=== PATIENT | female | born 1985 | race Caucasian/White ===

== ENCOUNTER 2020-01-29 | Emergency (ER) | payer BC, OTHER | END 2020-01-29 13:36 | disposition home or self-care (01) | CPT/HCPCS: 90471; 90715; 99282 ==

== ENCOUNTER → 2020-10-06 | Outpatient (CLI) | payer BC ==
--- NOTE | 2020-10-06 22:49 | CT ---
EXAMINATION TYPE: CT soft tissue neck w con DATE OF EXAM: 10/06/2020 COMPARISON: None HISTORY: Mass right side neck CT DLP: 339.40 mGycm CONTRAST: Patient injected with 50 mL of Isovue 300. TECHNIQUE: Axial images at 3 mm thick sections. Reconstructed images in the coronal plane and sagitt al plane are reviewed. Patient was marked with a BB for mass. However, the BB fell off prior to the s barrett and is not within the [id number] during the time of this scan. FINDINGS: Limited CT sections are obtained the lung apices. The lung apices appear clear. CT neck: There is fullness through the posterior nasal passage. Adenopathy could be considered. Direc t visualization could be performed. Parts Back Counter Man spaces are normal. Paranasal sinuses and mastoid air cells are clear. Parotid glands appear normal and symmetrical. Submandibular glands, are normal. Parapharyngeal spac es are normal. No suspicious adenopathy is evident. Small jugulodigastric and carotid sheath region lymph nodes. Enlarged lymphadenopathy is not evident . A few posterior triangle small lymph nodes are present. Couple of small submental lymph nodes are p resent. Lymph nodes are slightly more numerous on the right compared to the left. The hypopharynx appears within normal limits. Vocal cord level appear symmetrical. There is a hypodensity within the posterior right lobe thyroid. This could be further evaluated with ultrasound. This measures approximately 0.9 cm AP dimension Osseous structures are normal. IMPRESSIONS: 1. Scattered small lymph nodes. No enlarged suspicious adenopathy is evident. 2. No discrete abnormality to account for patient's mass.
--- NOTE | 2020-10-08 11:04 | CT ---
EXAMINATION TYPE: CT ChestAbdPelvis wo/w con DATE OF EXAM: 10/06/2020 INDICATION: Localized swelling, mass and lump, hx. non hodgkins lymphoma. COMPARISON: None CT DLP: 1205.00 mGycm CONTRAST: Performed with Oral Contrast and without and with IV Contrast, patient injected with 50 mL of Isovue 300. TECHNIQUE: Axial images at 5 mm thick sections. Reconstructed images in the coronal plane. Delayed images through the kidneys. Study is performed without and with intravenous contrast. FINDINGS: CT CHEST: Portion of the thyroid visualized is normal. No suspicious lung nodules or focal infiltrates are present. No enlarged mediastinal or hilar adenopathy is evident. The ascending aorta diameter at the level of the main pulmonary artery is 2.4 cm. The main pulmonary artery diameter at the bifurcation is 2.[address] ABDOMEN: Liver: Normal Spleen: Normal Pancreas: Normal Adrenal glands: The adrenal glands are normal. Gallbladder: Normal Kidneys: No masses are evident. No hydronephrosis is present. No cysts are present. Delayed images were obtained through the kidneys, which remain unremarkable. Aorta: Normal Inferior vena cava: Normal. CT PELVIS: Loops of bowel within the abdomen and pelvis are normal. There are loops of bowel which are incom pletely distended or lack oral contrast limiting their evaluation. Appendix: Not visualized. No suspicious dilated tubular structure inflammatory changes are evident. Urinary bladder: Normal. Genitourinary structures: Uterus is normal. Adnexal regions are clear Osseous structures: No suspicious lytic or sclerotic lesions. Lymph nodes: There are small axillary lymph nodes within the left axilla. The largest measures 0.7 cm on the left and 0.9 cm on the right. No suspicious mediastinal or hilar adenopathy is evident. IMPRESSIONS: 1. No suspicious enlarged adenopathy suggest recurrent lymphoma.
== END | disposition home or self-care (01) ==
LOC: RADCTMAIN 08:32
PROVIDERS: ATTEND Internal Medicine
DX: R22.0 Localized swelling, mass and lump, head (principal)
CPT/HCPCS: 70491; 71270; 74178; Q9967

== ENCOUNTER → 2020-10-06 | Outpatient (CLI) | payer BC | END | disposition home or self-care (01) | LOC: RADCTMAIN 09:00 | PROVIDERS: ATTEND Internal Medicine Endocrinology, Diabetes & Metabolism | DX: Z53.9 Procedure and treatment not carried out, unspecified reason (principal) ==

== ENCOUNTER → 2020-10-17 | Outpatient (CLI) | payer BC ==
--- NOTE | 2020-10-17 16:37 | US ---
EXAMINATION TYPE: US thyroid st tissue head/neck DATE OF EXAM: 10/17/2020 COMPARISON: Correlation CT 10/06/2020 CLINICAL HISTORY: 35-year-old female E04.1 Thyroid nodule. Nodule visualized on CT TECHNIQUE: Multiple sonographic images of the thyroid gland are obtained. FINDINGS: GLAND SIZE: Right Lobe: 5.3 x 1.1 x 1.0 cm Overall Parenchyma: homogenous Left Lobe: 4.8 x 0.9 x 0.9 cm Overall Parenchyma: homogeneous Isthmus Thickness: 0.2 cm NODULES RIGHT: # of nodules measured on right: 1 1. 1.1 X 0.9 x 0.9 cm heterogeneous, solid or almost completely solid, isoechoic nodule, which is w ider than tall, with smooth margins, without echogenic foci. Prior size: no previous LEFT: # of nodules measured on left: 1 1. 0.6 X 0.4 x 0.5 cm solid or almost completely solid (2 points), hypoechoic nodule (2 points), wh ich is wider than tall, with smooth margins, without echogenic foci. Prior size: no previous ISTHMUS: # of nodules measured in the isthmus: 0 Bilateral neck scanned, no evidence of lymphadenopathy. IMPRESSION: 1. Borderline to mild thyromegaly. 2. Solid nodule on each side, measuring 1.1 cm on the right (TR 4) and 6 mm on the left. The dominant nodule should be followed. FNA if it reaches 1.5 cm. 2017 ACR TI-RADS LEVEL: 4, moderately suspicious (follow if greater than 1 cm and FNA if greater than equal to 1.5 cm) *Highest TI-RADS level nodule reported
== END | disposition home or self-care (01) ==
LOC: RADUSWWP 15:23
PROVIDERS: ATTEND Internal Medicine
DX: E04.2 Nontoxic multinodular goiter (principal); Z91.013 Allergy to seafood
CPT/HCPCS: 76536

== ENCOUNTER → 2022-05-16 | Outpatient (CLI) | payer BC ==
--- NOTE | 2022-05-16 13:15 | US ---
EXAMINATION TYPE: US thyroid st tissue head/neck DATE OF EXAM: 05/16/2022 COMPARISON: NONE CLINICAL HISTORY: R59.0 ENLARGED LYMPH NODES. Palpable lymph node on right side of neck just under ma yocasta, patient is 10 weeks with h/o Non Hodgkin's Lymphoma years ago 2.5 x 2.1 x 1.1cm lymph node seen at palpable. Patient states her physician is ordering short term fo llow up in June. IMPRESSION: 1. Enlarged lymphadenopathy within the right neck at the level of the palpable abnormality is just po sterior to the submandibular gland.
== END | disposition home or self-care (01) ==
LOC: RADUSWWP 10:17
PROVIDERS: ATTEND Internal Medicine Hematology & Oncology
DX: R59.0 Localized enlarged lymph nodes (principal)
CPT/HCPCS: 76536

== ENCOUNTER 2022-06-20 08:20 | Emergency (ER) | payer BC ==
[2022-06-20 08:46] VITALS: RESP 18
[2022-06-20] MEDS ORDERED: ACETAMINOPHEN TAB 325 MG TAB PO STA (10:15)
[2022-06-20] MEDS ORDERED: SODIUM CHLORIDE 0.9% 2,000 ML IV STA (10:15)
[2022-06-20 10:41] LABS: Basophils # (A) 0.1 k/uL (0-0.2); Basophils % (A) 1 %; Eosinophils # (A) 0.1 k/uL (0-0.7); Eosinophils % (A) 1 %; HCT 35.4 % (34.0-46.0); HGB 11.6 gm/dL (11.4-16.0); Lymphocytes # (A) 0.7 k/uL (1.0-4.8); Lymphocytes % (A) 13 %; MCH 29.3 pg (25.0-35.0); MCHC 32.9 g/dL (31.0-37.0); Mean Platelet Volume 6.9; Monocytes # (A) 0.5 k/uL (0-1.0); Monocytes % (A) 9 %; Neutrophils # (A) 3.8 k/uL (1.3-7.7); Neutrophils % (A) 74 %; Platelet Count 234 k/uL (150-450); RBC 3.98 m/uL (3.80-5.40); WBC 5.1 k/uL (3.8-10.6)
[2022-06-20 10:45] LABS: Appearance,Urine Clear (Clear); Bacteria,Urine Occasional /hpf; Bilirubin,Urine Negative (Negative); Blood,Urine Negative (Negative); Color,Urine Yellow; Glucose,Urine (UA) 3+ (Negative); Leukocyte Esterase,Urine Moderate (Negative); Mucus,Urine Rare /hpf; Nitrite,Urine Negative (Negative); Protein,Urine Trace (Negative); Specific Gravity,Urine 1.021 (1.001-1.035); Squamous Epithelial Cell,Urine 2 /hpf (0-4); Urobilinogen,Urine <2.0 mg/dL (<2.0); WBC,Urine 3 /hpf (0-5)
--- NOTE | 2022-06-20 10:50 | ED ---
Abdominal Pain HPI - General Chief Complaint: Abdominal Pain Stated Complaint: ABM Pain,Fever Time Seen by Provider: 06/20/22 08:22 Source: patient, RN notes reviewed Mode of arrival: ambulatory Limitations: no limitations - History of Present Illness Initial Comments: 37-year-old female presents emergency Department chief complaint of fever, abdominal discomfort. Patient states she has not felt well over the last 2 days. She had decreased oral intakeand nausea. Patient is [address] Garcia. Patient states that she has right-sided abdominal pains had a prior appendectomy. Patient states temp was 101. She did Tylenol approximately 6 hours ago. Patient denies any unilateral flank pain with states she is bilateral back pain, no vaginal bleeding or vaginal discharge patient has been sick contacts of cough and cold-like symptoms. - Related Data Home Medications Medication Instructions Recorded Confirmed Pnv,Calcium 72/Iron/Folic Acid 1 each PO HS 08/22/15 08/22/15 [ Plus Tablet] Allergies Allergy/AdvReac Type Severity Reaction Status Date / Time codeine AdvReac Nausea & Verified 06/20/22 08:46 Vomiting Review of Systems ROS Statement: Those systems with pertinent positive or pertinent negative responses have been documented in the HPI. ROS Other: All systems not noted in ROS Statement are negative. Past Medical History Additional Past Medical History / Comment(s): Hodgkin's Lymphoma 2008 History of Any Multi-Drug Resistant Organisms: None Reported Past Surgical History: Appendectomy Past Psychological History: No Psychological Hx Reported Smoking Status: Former smoker Past Alcohol Use History: Occasional Past Drug Use History: None Reported General Exam Limitations: no limitations General appearance: alert, in no apparent distress Head exam: Present: atraumatic, normocephalic, normal inspection Eye exam: Present: normal appearance, PERRL, EOMI. Absent: scleral icterus, conjunctival injection, periorbital swelling ENT exam: Present: normal exam, normal oropharynx, mucous membranes moist Neck exam: Present: normal inspection, full ROM. Absent: tenderness, meningismus, lymphadenopathy Respiratory exam: Present: normal lung sounds bilaterally. Absent: respiratory distress, wheezes, rales, rhonchi, stridor Cardiovascular Exam: Present: normal rhythm, tachycardia, normal heart sounds. Absent: systolic murmur, diastolic murmur, rubs, gallop, clicks GI/Abdominal exam: Present: soft, tenderness (Mild diffuse right-sided minimal left), normal bowel sounds. Absent: distended, guarding, rebound, rigid Back exam: Absent: CVA tenderness (R), CVA tenderness (L) Neurological exam: Present: alert Skin exam: Present: warm, dry, intact, normal color. Absent: rash Course Vital Signs 06/20/22 08:43 Temperature 98.9 F Pulse Rate 111 H Respiratory 18 Rate Blood Pressure 108/71 O2 Sat by Pulse 99 Oximetry Medical Decision Making - Medical Decision Making 37-year-old female presented for headache abdominal pain fever. Patient is covid 19 positive. Patient was well-hydrated feels greatly improved. She did have mild dehydration. Patient's pupils glucose which will be further evaluated upon next [employer] visit she does not have any significant hyperglycemia. - Lab Data Result diagrams: 06/20/22 10:20 06/20/22 10:20 Lab Results 06/20/22 06/20/22 06/20/22 Range/Units 10:20 10:20 10:20 WBC 5.1 (3.8-10.6) k/uL RBC 3.98 (3.80-5.40) m/uL Hgb 11.6 (11.4-16.0) gm/dL Hct 35.4 (34.0-46.0) % MCV 89.0 (80.0-100.0) fL MCH 29.3 (25.0-35.0) pg MCHC 32.9 (31.0-37.0) g/dL RDW 13.0 (11.5-15.5) % Plt Count 234 (150-450) k/uL MPV 6.9 Neutrophils % 74 % Lymphocytes % 13 % Monocytes % 9 % Eosinophils % 1 % Basophils % 1 % Neutrophils # 3.8 (1.3-7.7) k/uL Lymphocytes # 0.7 L (1.0-4.8) k/uL Monocytes # 0.5 (0-1.0) k/uL Eosinophils # 0.1 (0-0.7) k/uL Basophils # 0.1 (0-0.2) k/uL Sodium 135 L (137-145) mmol/L Potassium 3.8 (3.5-5.1) mmol/L Chloride 106 (98-107) mmol/L Carbon Dioxide 21 L (22-30) mmol/L Anion Gap 8 mmol/L BUN 5 L (7-17) mg/dL Creatinine 0.48 L (0.52-1.04) mg/dL Est GFR (CKD-EPI)AfAm >90 (>60 ml/min/1.73 sqM) Est GFR (CKD-EPI)NonAf >90 (>60 ml/min/1.73 sqM) Glucose 95 (74-99) mg/dL Plasma Lactic Acid Edi 1.1 (0.7-2.0) mmol/L Calcium 9.2 (8.4-10.2) mg/dL Total Bilirubin 0.4 (0.2-1.3) mg/dL AST 28 (14-36) U/L ALT 14 (4-34) U/L Alkaline Phosphatase 51 (38-126) U/L Total Protein 7.0 (6.3-8.2) g/dL Albumin 4.0 (3.5-5.0) g/dL Amylase 84 (30-110) U/L Lipase 63 (23-300) U/L Urine Color Urine Appearance (Clear) Urine pH (5.0-8.0) Ur Specific Page (1.001-1.035) Urine Protein (Negative) Urine Glucose (UA) (Negative) Urine Ketones (Negative) Urine Blood (Negative) Urine Nitrite (Negative) Urine Bilirubin (Negative) Urine Urobilinogen (<2.0) mg/dL Ur Leukocyte Esterase (Negative) Urine WBC (0-5) /hpf Ur Squamous Epith Cells (0-4) /hpf Urine Bacteria (None) /hpf Urine Mucus (None) /hpf Coronavirus (PCR) (Not Detectd) 06/20/22 06/20/22 Range/Units 10:20 10:20 WBC (3.8-10.6) k/uL RBC (3.80-5.40) m/uL Hgb (11.4-16.0) gm/dL Hct (34.0-46.0) % MCV (80.0-100.0) fL MCH (25.0-35.0) pg MCHC (31.0-37.0) g/dL RDW (11.5-15.5) % Plt Count (150-450) k/uL MPV Neutrophils % % Lymphocytes % % Monocytes % % Eosinophils % % Basophils % % Neutrophils # (1.3-7.7) k/uL Lymphocytes # (1.0-4.8) k/uL Monocytes # (0-1.0) k/uL Eosinophils # (0-0.7) k/uL Basophils # (0-0.2) k/uL Sodium (137-145) mmol/L Potassium (3.5-5.1) mmol/L Chloride (98-107) mmol/L Carbon Dioxide (22-30) mmol/L Anion Gap mmol/L BUN (7-17) mg/dL Creatinine (0.52-1.04) mg/dL Est GFR (CKD-EPI)AfAm (>60 ml/min/1.73 sqM) Est GFR (CKD-EPI)NonAf (>60 ml/min/1.73 sqM) Glucose (74-99) mg/dL Plasma Lactic Acid Edi (0.7-2.0) mmol/L Calcium (8.4-10.2) mg/dL Total Bilirubin (0.2-1.3) mg/dL AST (14-36) U/L ALT (4-34) U/L Alkaline Phosphatase (38-126) U/L Total Protein (6.3-8.2) g/dL Albumin (3.5-5.0) g/dL Amylase (30-110) U/L Lipase (23-300) U/L Urine Color Yellow Urine Appearance Clear (Clear) Urine pH 6.0 (5.0-8.0) Ur Specific Page 1.021 (1.001-1.035) Urine Protein Trace H (Negative) Urine Glucose (UA) 3+ H (Negative) Urine Ketones 2+ H (Negative) Urine Blood Negative (Negative) Urine Nitrite Negative (Negative) Urine Bilirubin Negative (Negative) Urine Urobilinogen <2.0 (<2.0) mg/dL Ur Leukocyte Esterase Moderate H (Negative) Urine WBC 3 (0-5) /hpf Ur Squamous Epith Cells 2 (0-4) /hpf Urine Bacteria Occasional H (None) /hpf Urine Mucus Rare H (None) /hpf Coronavirus (PCR) Detected A (Not Detectd) Disposition Clinical Impression: COVID-19, Dehydration Disposition: HOME SELF-CARE Condition: Stable Instructions (If sedation given, give patient instructions): COVID-19 (Coronavirus Disease 2019) (ED) Additional Instructions: Please return to the Emergency Department if symptoms worsen or any other concerns. Is patient prescribed a controlled substance at d/c from ED?: No Referrals: Timothy Snider MD [Primary Care Provider] - 1-2 days Time of Disposition: 13:03
[2022-06-20 10:52] LABS: ALT 14 U/L (4-34); AST 28 U/L (14-36); African American GFR (CKD) >90 (>60 ml/min/1.73 sqM); Alkaline Phosphatase 51 U/L (38-126); Amylase 84 U/L (30-110); Anion Gap 8 mmol/L; Blood Urea Nitrogen 5 mg/dL (7-17); Calcium 9.2 mg/dL (8.4-10.2); Carbon Dioxide 21 mmol/L (22-30); Chloride 106 mmol/L (98-107); Glucose 95 mg/dL (74-99); Lipase 63 U/L (23-300); Non-African American GFR(CKD) >90 (>60 ml/min/1.73 sqM); Potassium 3.8 mmol/L (3.5-5.1); Sodium 135 mmol/L (137-145); Total Bilirubin 0.4 mg/dL (0.2-1.3)
[2022-06-20 11:15] LABS: Ketones,Urine 2+ (Negative)
--- NOTE | 2022-06-20 12:17 | US ---
EXAMINATION TYPE: US gallbladder DATE OF EXAM: 06/20/2022 COMPARISON: None CLINICAL HISTORY: 37-year-old female fever, pain. Abdomen pain TECHNIQUE: Multiple sonographic images of the right upper quadrant are obtained. FINDINGS: EXAM MEASUREMENTS: Liver Length: 14.9 cm Gallbladder Wall: 0.2 cm CBD: 0.3 cm Right Kidney: 12.1 x 4.6 x 5.1 cm Pancreas: wnl Liver: wnl Gallbladder: wnl. No gallstones or abnormal distention. Evidence for sonographic Barriga's sign: no CBD: wnl Right Kidney: wnl IMPRESSION: Unremarkable sonographic examination of the right upper quadrant.
--- NOTE | 2022-06-20 12:54 | US ---
EXAMINATION TYPE: US OB limited DATE OF EXAM: 06/20/2022 COMPARISON: NONE CLINICAL HISTORY: heart tone. Evaluate heart tones only. Hx 4 miscarriages, D and C. G7 P 2. EXAM PERFORMED: Transabdominal (TA) GESTATIONAL AGE / DATING Physician Established: (15 weeks/0 days) EDC: 03/07/2022 No growth performed on today?s study per ordering physician SURVEY PRESENTATION: Vertex HEART RATE: 147 bpm 1st measurement, 140 bpm 2nd measurement RHYTHM: Normal limited scan IMPRESSION: heart rate above
[2022-06-20 13:12] VITALS: BP 95/56; PULSE 82; TEMP 97.6
== END 2022-06-20 13:11 | disposition home or self-care (01) ==
LOC: EC 08:20
DX: O98.511 Other viral diseases complicating pregnancy, first trimester (principal); U07.1 COVID-19; Z87.891 Personal history of nicotine dependence; Z88.6 Allergy status to analgesic agent; Z3A.15 15 weeks gestation of pregnancy
CPT/HCPCS: 36415; 76705; 76815; 80053; 81001; 82150; 83605; 83690; 85025; 87635; 96360; 96361; 99284

== ENCOUNTER → 2022-07-04 | Outpatient (CLI) | payer BC ==
--- NOTE | 2022-07-04 14:20 | US ---
EXAMINATION TYPE: US st tissue neck DATE OF EXAM: 07/04/2022 COMPARISON: US 04/2022 CLINICAL HISTORY: 37-year-old female R59.0 LOCALIZED ENLARGED LYMPH NODES. Follow right neck palpable lymph node. Patient has history of lymphoma. Patient is 17 weeks . TECHNIQUE: Gold Blower notes: Area of concern scanned at the right neck palpable site. FINDINGS: Gold Blower notes: Previous lymph node seen measuring 2.3 x 1.4 x 0.8 cm (1.4 cm short axis) and with cortical thickening up to 3.1 mm. This lymph node is present adjacent to submandibular gland. Previously measured 2.5 x 2.1 x 1.1 cm. IMPRESSION: Persistently enlarged with decreasing size of the right submandibular space lymph node currently 1.4 cm short axis versus 2.1 cm, previously.
== END | disposition home or self-care (01) ==
LOC: RADUSWWP 09:25
PROVIDERS: ATTEND Internal Medicine Hematology & Oncology
DX: R59.0 Localized enlarged lymph nodes (principal)
CPT/HCPCS: 76536

== ENCOUNTER → 2022-09-05 | Outpatient (CLI) | payer BC ==
--- NOTE | 2022-09-05 11:55 | US ---
EXAMINATION TYPE: US thyroid st tissue head/neck DATE OF EXAM: 09/05/2022 COMPARISON: 07/04/2022, 05/16/2022 CLINICAL HISTORY: Personal history of Hodgkin lymphoma. Right neck palpable mass follow up. Patient is 26 weeks In area of palpable concern, right superior lateral neck near submandibular gland, a 2.8 x 0.56 x 1.2 cm lymph node is visualized. *Prior measurement in June 2022 was 2.3 x 0.75 x 1.4 cm. Node appears less prominent today however technical differences may account for change in length siz e. Cortical thickness is 0.23 cm today compared to 0.31cm in June 2022. IMPRESSION: Relatively stable mildly enlarged right submandibular space lymph node when taken into account differ ences in technique. Cortical thicknesses is marginally decreased from prior examination.
== END | disposition home or self-care (01) ==
LOC: RADUSWWP 10:35
PROVIDERS: ATTEND Internal Medicine Hematology & Oncology
DX: R59.0 Localized enlarged lymph nodes (principal); Z85.72 Personal history of non-Hodgkin lymphomas
CPT/HCPCS: 76536

== ENCOUNTER → 2022-12-01 | Outpatient (CLI) | payer BC ==
[2022-12-01 19:41] VITALS: BP 122/78; PULSE 106; RESP 16; TEMP 96.9
--- NOTE | 2022-12-12 12:51 | P.MSEPDOC ---
Presenting Problems - Arrival Data Date of Arrival on Unit: 12/01/22 Time of Arrival on Unit: 17:58 Mode of Transport: Ambulatory - Complaint OB-Reason for Admission/Chief Complaint: Possible Onset of Labor Comment: Patient arrived in triage stating she had painful contractions earlier in the day that have now spaced out. Denies leaking of fluid after cervical exam in office by Dr. Garcia 11/30/2011 patient states she had smal amount of brown discharge and started cramping after exam. Abdomen soft and non tender per Tesha TANNER. Medical History - Information : 3 Para: 2 Number of Living Children: 2 - Gestational Age Gestational Age by RODRIGO (wks/days): 38 Weeks and 3 Days Review of Systems - Review of Systems Constitutional: No problems Breast: No problems ENT: No problems Cardiovascular: No problems Respiratory: No problems Gastrointestinal: No problems Genitourinary: No problems Musculoskeletal: No problems Neurological: No problems Skin: No problems Vital Signs - Temperature Temperature: 96.9 F Temperature Source: Temporal Artery Scan - Pulse Pulse Oximetery Pulse Rate: 106 Pulse Assessment Method: Pulse Oximetry - Respirations Respiratory Rate: 16 Oxygen Delivery Method: Room Air O2 Sat by Pulse Oximetry: 100 - Blood Pressure Right Arm Blood Pressure: 122/78 Blood Pressure Mean: 92 Blood Pressure Source: Automatic Cuff Medical Screen Scoring - Cervical Exam Dilation (cm): 1.5 Effacement (%): 70 Station: -2 - Uterine Contractions Resting: Soft to palpation - Assessment - Baby A Baseline FHR: 125 Heart Rate - NICHD Category: Category I (Normal) NST: Reactive Physician Notification - Physician Notified Physician Notified Date: 12/01/22 Physician Notified Time: 18:43 Physician: Jonna Garcia New Order Received: Yes - Notification Comment Comment: Tesha Osuna RN spoke with Dr. Garcia regarding patient c/o pain with contractions reviewed FHTs/toco tracing vital signs and cervical exam. Dr. Garcia ordered a cervical check in one hour if no change than send home. Maternal Triage Index - Non-Urgent/Priority 4 Non-Urgent Priority 4: Yes Criteria Met for Priority 4: Patient arrived in triage stating she had painful contractions earlier in the day that have now spaced out. Denies leaking of fluid after cervical exam in office by Dr. Garcia 11/30/2011 patient states she had smal amount of brown discharge and started cramping after exam. Abdomen soft and non tender per Tesha RN. Disposition - Disposition OB Disposition: Triage Discharge Date: 12/01/22 Discharge Time: 19:15 I agree with the RN Medical Screening Exam: Yes Case reviewed; plan agreed upon as documented in EMR&OBIX.: Yes Diagnosis: PRIMARY INADEQUATE CONTRACTIONS
== END ==
LOC: FBPOP 17:58
PROVIDERS: ATTEND Obstetrics & Gynecology
DX: O62.0 Primary inadequate contractions (principal); Z3A.38 38 weeks gestation of pregnancy; Z87.891 Personal history of nicotine dependence; Z88.5 Allergy status to narcotic agent
CPT/HCPCS: 59025; 99213

== ENCOUNTER 2022-12-07 21:34 | Outpatient (CLI) | payer BC ==
[2022-12-08 00:20] VITALS: BP 130/76; PULSE 104; RESP 16; TEMP 97.9
--- NOTE | 2022-12-09 10:44 | P.MSEPDOC ---
Presenting Problems - Arrival Data Date of Arrival on Unit: 12/07/22 Time of Arrival on Unit: 21:34 Mode of Transport: Wheelchair - Complaint OB-Reason for Admission/Chief Complaint: Possible Onset of Labor, Rule Out SROM Comment: pt presents to triage for eval of possible leaking fluid since 8am today, continued contractions for last few days crampy and sporatic. Spoke with Dr Santos on phone and was advised to come in Medical History - Information : 7 Para: 2 Term: 2 : 0 Abortions: Spontaneous or Elective: 4 Number of Living Children: 2 - Gestational Age Gestational Age by RODRIGO (wks/days): 39 Weeks and 3 Days - History Comment: advanced maternal age Review of Systems - Review of Systems Constitutional: No problems Breast: No problems ENT: No problems Cardiovascular: No problems Respiratory: No problems Gastrointestinal: No problems Genitourinary: No problems Musculoskeletal: No problems Neurological: No problems Skin: No problems Vital Signs - Temperature Temperature: 97.9 F Temperature Source: Temporal Artery Scan - Pulse Right Pulse Rate: 104 Pulse Assessment Method: Pulse Oximetry - Respirations Respiratory Rate: 16 Oxygen Delivery Method: Room Air O2 Sat by Pulse Oximetry: 99 - Blood Pressure Right Arm Blood Pressure: 130/76 Blood Pressure Mean: 94 Blood Pressure Source: Automatic Cuff Medical Screen Scoring - Cervical Exam Dilation (cm): 2.5 Effacement (%): 80 Station: -3 Membranes: Intact - Uterine Contractions Frequency From (mins): 0 Frequency To (mins): 0 Duration From (seconds): 0 Duration To (seconds): 0 Resting: Soft to palpation - Assessment - Baby A Baseline FHR: 125 Heart Rate - NICHD Category: Category I (Normal) NST: Reactive Physician Notification - Physician Notified Physician Notified Date: 12/07/22 Physician Notified Time: 22:15 Physician: Dr Santos New Order Received: Yes (Discharge order) - Notification Comment Comment: Dr Santos updated with pts reason for visit possible leaking of fluid and continued contractions. Nst Reactive, Cat 1 FHR. No contractions tracing per monitor or palpated or per pt since arrival, cervical exam unchanged from office exam Mon (2-3 cm80%) maternal vitals wnl. amnisure neg confirmed by 2nd rn. A Lauri RN. Discharge order received. Maternal Triage Index - Maternal Triage Index Presenting for scheduled procedure w/no complaint: No - Stat/Priority 1 Stat Priority 1: No - Urgent/Priority 2 Urgent Priority 2: No - Prompt/Priority 3 Prompt Priority 3: No - Non-Urgent/Priority 4 Non-Urgent Priority 4: Yes Criteria Met for Priority 4: leaking fluid / contractions Disposition - Disposition OB Disposition: Discharge to home Discharge Date: 12/07/22 Discharge Time: 22:45 I agree with the RN Medical Screening Exam: Yes Case reviewed; plan agreed upon as documented in EMR&OBIX.: Yes Diagnosis: FALSE LABOR AT OR AFTER 37 COMPLETED WEEKS OF GESTATION
== END 2022-12-07 22:45 | disposition home or self-care (01) ==
LOC: FBPOP 21:34
PROVIDERS: ATTEND Obstetrics & Gynecology
DX: O47.1 False labor at or after 37 completed weeks of gestation (principal); Z3A.39 39 weeks gestation of pregnancy; Z88.5 Allergy status to narcotic agent; Z87.891 Personal history of nicotine dependence
CPT/HCPCS: 59025; 84112; 99213

== ENCOUNTER 2022-12-10 02:37 | Inpatient (IN) | payer BC ==
[2022-12-10] MEDS ORDERED: LACTATED RINGERS 1,000 ML IV SCH ×2 (03:00→03:45)
[2022-12-10] MEDS ORDERED: LIDOCAINE 0.5% (PF) 5 MG/ML (50 ML SDV) SQ PRN (03:41)
[2022-12-10] MEDS ORDERED: TERBUTALINE 1 MG/ML VIAL SQ PRN (03:41)
[2022-12-10] MEDS ORDERED: OXYTOCIN 30 UNITS/500 ML NS 30 UNIT in SALINE 1 500ML.BAG IV SCH ×2 (03:45→15:30)
[2022-12-10 04:10] LABS: Basophils # (A) 0.1 k/uL (0-0.2); Basophils % (A) 1 %; Eosinophils # (A) 0.2 k/uL (0-0.7); Eosinophils % (A) 2 %; HCT 35.6 % (34.0-46.0); HGB 12.1 gm/dL (11.4-16.0); Lymphocytes # (A) 2.1 k/uL (1.0-4.8); Lymphocytes % (A) 21 %; MCH 28.8 pg (25.0-35.0); MCV 84.6 fL (80.0-100.0); Mean Platelet Volume 8.2; Monocytes # (A) 0.4 k/uL (0-1.0); Monocytes % (A) 4 %; Neutrophils # (A) 7.1 k/uL (1.3-7.7); Neutrophils % (A) 72 %; Platelet Count 243 k/uL (150-450); RBC 4.21 m/uL (3.80-5.40); RDW 14.4 % (11.5-15.5)
[2022-12-10] MEDS: LACTATED RINGERS 1,000 ML IV SCH ×3 (04:37→20:27)
[2022-12-10] MEDS ORDERED: diphenhydrAMINE 25 MG CAP PO PRN (15:17)
[2022-12-10] MEDS ORDERED: diphenhydrAMINE 50 MG CAP PO PRN (15:17)
[2022-12-10] MEDS ORDERED: diphenhydrAMINE 50 MG/ML 1 ML VIAL IVP PRN ×2 (15:17)
[2022-12-10] MEDS ORDERED: ZOLPIDEM 5 MG TAB PO PRN (15:17)
[2022-12-10] MEDS ORDERED: ACETAMINOPHEN TAB 325 MG TAB PO PRN (15:17)
[2022-12-10] MEDS ORDERED: LANOLIN CREAM 5 GM TUBE TOPICAL PRN (15:17)
[2022-12-10] MEDS ORDERED: HYDROCORTISONE 2.5% RECTAL CREAM 30 GM TUBE RECTAL PRN (15:17)
[2022-12-10] MEDS ORDERED: BENZOCAINE/MENTHOL SPRAY 1 GM/SPRAY AEROSOL TOPICAL PRN (15:17)
[2022-12-10] MEDS ORDERED: SIMETHICONE 80 MG CHEWABLE PO PRN (15:17)
[2022-12-10] MEDS ORDERED: METHYLERGONOVINE 0.2 MG/ML 1 ML AMP IM ONE (15:28)
[2022-12-10] MEDS: IBUPROFEN 600 MG TAB PO PRN (15:50)
[2022-12-10] MEDS: SENNOSIDES-DOCUSATE SODIUM 1 EACH TAB PO SCH (20:26)
[2022-12-10 20:28] VITALS: RESP 18
[2022-12-11] MEDS: IBUPROFEN 600 MG TAB PO PRN (04:32)
--- NOTE | 2022-12-11 07:39 | P.HPOB ---
History of Present Illness H&P Date: 12/10/22 Chief Complaint: Spontaneous rupture of membranes 37-year-old presents at 39 weeks and 5 days with spontaneous rupture membranes at 1 AM. When she presented to her cervix was dilated 4-5 cm, 70% effaced, -2 station. She is darshan every 2-5 minutes. heart tones 135 with moderate variability and reactive. Review of Systems All systems: negative Constitutional: Denies chills, Denies fever Eyes: denies blurred vision, denies pain Ears, nose, mouth and throat: Denies headache, Denies sore throat Cardiovascular: Denies chest pain, Denies shortness of breath Respiratory: Denies cough Gastrointestinal: Denies abdominal pain, Denies diarrhea, Denies nausea, Denies vomiting Genitourinary: Denies dysuria, Denies hematuria Musculoskeletal: Denies myalgias Integumentary: Denies pruritus, Denies rash Neurological: Denies numbness, Denies weakness Psychiatric: Denies anxiety, Denies depression Endocrine: Denies fatigue, Denies weight change Past Medical History Additional Past Medical History / Comment(s): Hodgkin's Lymphoma 2008 History of Any Multi-Drug Resistant Organisms: None Reported Past Surgical History: Appendectomy Additional Past Surgical History / Comment(s): Bone marrow biopsy, endoscopy, Portacath insertion and removal, Biopsy of right clavicle. Past Anesthesia/Blood Transfusion Reactions: No Reported Reaction Past Psychological History: No Psychological Hx Reported Smoking Status: Former smoker Past Alcohol Use History: Occasional Past Drug Use History: None Reported - Past Family History Mother Family Medical History: No Reported History Medications and Allergies Home Medications Medication Instructions Recorded Confirmed Type Pnv,Calcium 72/Iron/Folic Acid 1 each PO HS 08/22/15 12/10/22 History [ Plus Tablet] Aspirin 81 mg PO DAILY 12/10/22 12/10/22 History Esomeprazole Magnesium [NexIUM] 20 mg PO DAILY 12/10/22 12/10/22 History Fish Oil/Dha/Epa [Fish Oil 1,200 1 capsule PO DAILY 12/10/22 12/10/22 History mg Fish Oil] Allergies Allergy/AdvReac Type Severity Reaction Status Date / Time codeine AdvReac Nausea & Verified 12/07/22 22:37 Vomiting Exam Osteopathic Statement: *. No significant issues noted on an osteopathic str uctural exam other than those noted in the History and Physical/Consult. Vital Signs Temp Pulse Resp BP Pulse Ox 12/11/22 04:00 97.7 F 85 18 110/73 98 12/10/22 23:49 97.6 F 90 18 118/75 98 12/10/22 20:00 98.3 F 105 H 18 124/72 97 12/10/22 16:56 96.7 F L 100 17 117/70 12/10/22 16:26 91 18 129/66 12/10/22 15:56 93 18 124/56 12/10/22 15:41 69 17 131/68 12/10/22 15:26 84 17 130/60 12/10/22 15:11 79 17 124/61 12/10/22 14:56 98.2 F 89 17 124/65 Intake and Output 12/10/22 12/11/22 12/11/22 22:59 06:59 14:59 Intake Total 172.567 Output Total 100 Balance 72.567 Intake: Intake, IV Titration 172.567 Amount Oxytocin 30 Units/500 ml 172.567 Ns 30 unit In Saline 1 500ml.bag @ Per Protocol IV .Q0M HARJIT Rx#:[id number] Output: Output, Quantitative 100 Blood Loss Other: # Voids 1 2 Heart: Regular rate and rhythm Lungs: Clear to auscultation bilaterally Abdomen: Soft, nontender Extremities: Negative Homans sign Results Result Diagrams: 12/10/22 03:25 Assessment and Plan (1) Spontaneous rupture of membranes Current Visit: Yes Status: Acute Code(s): DUY6430 - SNOMED Code(s): 615501127 (2) Normal labor Current Visit: Yes Status: Acute Code(s): O80 - ENCOUNTER FOR FULL-TERM UNCOMPLICATED DELIVERY; Z37.9 - OUTCOME OF DELIVERY, UNSPECIFIED SNOMED Code(s): 15342211 Plan: Admit to family place 2. Expectant management 3. Anticipate normal vaginal delivery
--- NOTE | 2022-12-11 07:41 | P.PROBDLV ---
Vaginal Delivery Note - . Vaginal Delivery Note: 37-year-old presents at 39 weeks and 5 days with spontaneous rupture membranes at 1 AM. When she presented to her cervix was dilated 4-5 cm, 70% effaced, -2 station. She is darshan every 2-5 minutes. heart tones 135 with moderate variability and reactive. Patient was admitted to [facility]. She continued to have contractions every 2-4 minutes and they're getting stronger. She remained 7 cm for a few hours but then was complete at 1438. She pushed, delivered a viable female infant over intact perineum at 1442. Head delivered OA, anterior shoulder delivered gentle downward guidance followed by posterior shoulder and rest of body. Nose and mouth bulb suctioned, cord clamped and cut, infant placed on mother's abdomen. Apgars 9, 9, weight 8 lbs. 1 oz. Placenta delivered spontaneously, intact with three-vessel cord at 1444. Vagina, cervix, and perineum inspected. No lacerations noted. Estimated blood loss 300 mL. Mother and baby in stable condition.
--- NOTE | 2022-12-11 07:45 | P.DS ---
Providers Date of admission: 12/10/22 03:14 Expected date of discharge: 12/11/22 Attending physician: Jonna Garcia Primary care physician: Stated None - Discharge Diagnosis(es) (1) Spontaneous rupture of membranes Current Visit: Yes Status: Resolved (2) Normal labor Current Visit: Yes Status: Resolved (3) Normal vaginal delivery Current Visit: Yes Status: Acute Hospital Course: Patient presented with spontaneous rupture membranes. She underwent a normal vaginal delivery. course was uncomplicated. She denies nausea, vomiting, chest pain, shortness of breath or calf pain. Patient will be discharged home day #1 in stable condition to follow-up with me in 6 weeks. Plan - Discharge Summary New Discharge Prescriptions: New Ibuprofen [Motrin] 600 mg PO Q6HR PRN #30 tab PRN Reason: Mild Pain (Scale 1 To 3) No Action Pnv,Calcium 72/Iron/Folic Acid [ Plus Tablet] 1 each PO HS Esomeprazole Magnesium [NexIUM] 20 mg PO DAILY Aspirin 81 mg PO DAILY Fish Oil/Dha/Epa [Fish Oil 1,200 mg Fish Oil] 1 capsule PO DAILY Discharge Medication List Pnv,Calcium 72/Iron/Folic Acid [ Plus Tablet] 1 each PO HS 08/22/15 [History] Aspirin 81 mg PO DAILY 12/10/22 [History] Esomeprazole Magnesium [NexIUM] 20 mg PO DAILY 12/10/22 [History] Fish Oil/Dha/Epa [Fish Oil 1,200 mg Fish Oil] 1 capsule PO DAILY 12/10/22 [History] Ibuprofen [Motrin] 600 mg PO Q6HR PRN #30 tab 12/11/22 [Rx] Follow up Appointment(s)/Referral(s): Jonna Garcia DO [Doctor of Osteopathic Medicine] - 6 Weeks Discharge Disposition: HOME SELF-CARE
[2022-12-11 08:02] LABS: Basophils # (A) 0.1 k/uL (0-0.2); Basophils % (A) 1 %; Eosinophils # (A) 0.2 k/uL (0-0.7); Eosinophils % (A) 2 %; HCT 31.4 % (34.0-46.0); HGB 10.6 gm/dL (11.4-16.0); Lymphocytes # (A) 2.2 k/uL (1.0-4.8); Lymphocytes % (A) 19 %; MCHC 33.6 g/dL (31.0-37.0); MCV 86.2 fL (80.0-100.0); Monocytes # (A) 0.5 k/uL (0-1.0); Monocytes % (A) 4 %; Neutrophils # (A) 8.6 k/uL (1.3-7.7); Neutrophils % (A) 73 %; Platelet Count 221 k/uL (150-450); RBC 3.64 m/uL (3.80-5.40); RDW 14.8 % (11.5-15.5); WBC 11.7 k/uL (3.8-10.6)
[2022-12-11] MEDS: SENNOSIDES-DOCUSATE SODIUM 1 EACH TAB PO SCH (11:40)
[2022-12-11 12:06] VITALS: BP 120/76; PULSE 87; TEMP 97
--- NOTE | 2022-12-12 12:53 | P.MSEPDOC ---
Presenting Problems - Arrival Data Date of Arrival on Unit: 12/10/22 Time of Arrival on Unit: 02:50 Mode of Transport: Wheelchair - Complaint OB-Reason for Admission/Chief Complaint: Possible Onset of Labor, Rule Out SROM Medical History - Information : 7 Para: 2 Term: 2 : 0 Abortions: Spontaneous or Elective: 4 Number of Living Children: 2 - Gestational Age Gestational Age by RODRIGO (wks/days): 39 Weeks and 5 Days Review of Systems - Review of Systems Constitutional: No problems Breast: No problems ENT: No problems Cardiovascular: No problems Respiratory: No problems Gastrointestinal: No problems Genitourinary: No problems Musculoskeletal: No problems Neurological: No problems Skin: No problems Vital Signs - Temperature Temperature: 97 F Temperature Source: Oral - Pulse Pulse Oximetery Pulse Rate: 87 Pulse Assessment Method: Pulse Oximetry - Respirations Respiratory Rate: 18 Oxygen Delivery Method: Room Air - Blood Pressure Right Arm Blood Pressure: 120/76 Blood Pressure Mean: 90 Blood Pressure Source: Automatic Cuff Medical Screen Scoring - Cervical Exam Dilation (cm): 4 Effacement (%): 70 Station: -2 Membranes: Ruptured - Uterine Contractions Intensity: Moderate Resting: Soft to palpation - Assessment - Baby A Baseline FHR: 120 Heart Rate - NICHD Category: Category I (Normal) NST: Reactive Physician Notification - Physician Notified Physician Notified Date: 12/10/22 Physician Notified Time: 03:12 Physician: Dr. Danielle Sotelo Order Received: Yes Maternal Triage Index - Maternal Triage Index Presenting for scheduled procedure w/no complaint: No - Stat/Priority 1 Stat Priority 1: No - Urgent/Priority 2 Urgent Priority 2: No - Prompt/Priority 3 Prompt Priority 3: No - Non-Urgent/Priority 4 Non-Urgent Priority 4: Yes Criteria Met for Priority 4: >37 weeks labor signs and c/o SROM Disposition - Disposition OB Disposition: Admit Transferred to:: [address] Discharge Date: 12/11/22 Discharge Time: 16:45 I agree with the RN Medical Screening Exam: Yes Case reviewed; plan agreed upon as documented in EMR&OBIX.: Yes Diagnosis: ENCOUNTER FOR FULL-TERM UNCOMPLICATED DELIVERY
== END 2022-12-11 16:45 | disposition home or self-care (01) | DRG 807 ==
LOC: FBPOP 02:37 → 4FBP 03:14
PROVIDERS: ADMIT Obstetrics & Gynecology; ATTEND Obstetrics & Gynecology
PROC: 10E0XZZ Delivery of Products of Conception, External Approach (ICD-10-PCS; principal; 2022-12-10)
DX: O80 Encounter for full-term uncomplicated delivery (principal); Z79.82 Long term (current) use of aspirin; Z85.71 Personal history of Hodgkin lymphoma; Z87.891 Personal history of nicotine dependence; Z88.5 Allergy status to narcotic agent; Z3A.39 39 weeks gestation of pregnancy; Z37.0 Single live birth
CPT/HCPCS: 59025; 84112; 85025; 86850; 86900; 86901; 99213

== ENCOUNTER 2023-05-10 06:20 | Day surgery (SDC) | payer BC ==
[2023-05-06 16:10] VITALS: BMI 26.6
--- NOTE | 2023-05-09 10:55 | P.HPOB ---
History of Present Illness H&P Date: 05/09/23 Chief Complaint: family planning 38 year old presents for laparosopic tubal ligation. Review of Systems All systems: negative Constitutional: Denies chills, Denies fever Eyes: denies blurred vision, denies pain Ears, nose, mouth and throat: Denies headache, Denies sore throat Cardiovascular: Denies chest pain, Denies shortness of breath Respiratory: Denies cough Gastrointestinal: Denies abdominal pain, Denies diarrhea, Denies nausea, Denies vomiting Genitourinary: Denies dysuria, Denies hematuria Musculoskeletal: Denies myalgias Integumentary: Denies pruritus, Denies rash Neurological: Denies numbness, Denies weakness Psychiatric: Denies anxiety, Denies depression Endocrine: Denies fatigue, Denies weight change Past Medical History Additional Past Medical History / Comment(s): Hodgkin's Lymphoma 2008 History of Any Multi-Drug Resistant Organisms: None Reported Past Surgical History: Appendectomy Additional Past Surgical History / Comment(s): Bone marrow biopsy, endoscopy, Portacath insertion and removal, Biopsy of right clavicle. Past Anesthesia/Blood Transfusion Reactions: Postoperative Nausea & Vomiting (PONV) Additional Past Anesthesia/Blood Transfusion Reaction / Comment(s): Becomes very sick with anesthesia and also has panic attacks. Smoking Status: Former smoker - Past Family History Mother Family Medical History: No Reported History Medications and Allergies Home Medications Medication Instructions Recorded Confirmed Type No Known Home Medications 05/06/23 05/06/23 History Allergies Allergy/AdvReac Type Severity Reaction Status Date / Time codeine AdvReac Nausea & Verified 05/06/23 15:54 Vomiting Exam Osteopathic Statement: *. No significant issues noted on an osteopathic structural exam other than those noted in the History and Physical/Consult. HEart: RRR Lungs: CTAB Abdomen: soft, nontender Extremeties: neg alvin's Assessment and Plan (1) Family planning Status: Acute Code(s): Z30.09 - ENCOUNTER FOR OTH GENERAL CNSL AND ADVICE ON CONTRACEPTION SNOMED Code(s): 612610506 Plan: 1. laparoscopic tubal ligation
[~2023-05-10 06:20] MED LIST: LACTATED RINGERS 1,000 ML IV SCH; ONDANSETRON 4 MG/2 ML VIAL IVP ONE; Pre Op ABX Message 1 EACH MISC MISCELLANE ONE
[2023-05-10] MEDS ORDERED: LACTATED RINGERS 1,000 ML IV ONE (06:48)
[2023-05-10 06:49] VITALS: TEMP 97.7
[2023-05-10] MEDS ORDERED: SCOPOLAMINE 1 MG/72 HR PATCH TRANSDERM ONE (06:55)
[2023-05-10] MEDS ORDERED: DEXAMETHASONE SOD PHOSPHATE 4 MG/ML 1 ML VIAL IVP ONE (06:55)
[2023-05-10] MEDS ORDERED: MIDAZOLAM 2 MG/2 ML VIAL IVP ONE (06:59)
[2023-05-10] MEDS ORDERED: HYDROmorphone 0.5 MG/0.5 ML SYRINGE IVP PRN (07:00)
[2023-05-10] MEDS ORDERED: diphenhydrAMINE 50 MG/ML 1 ML VIAL ONE (07:24)
[2023-05-10] MEDS ORDERED: SUCCINYLCHOLINE CHLORIDE 200 MG/10 ML VIAL IV ONE (07:24)
[2023-05-10] MEDS ORDERED: ROCURONIUM 10 MG/ML (5 ML VIAL) IV ONE (07:24)
[2023-05-10] MEDS ORDERED: NEOSTIGMINE 1 MG/ML 10 ML VIAL ONE (07:24)
[2023-05-10] MEDS ORDERED: MIDAZOLAM 2 MG/2 ML VIAL ONE (07:24)
[2023-05-10] MEDS ORDERED: PROPOFOL 10 MG/ML 20 ML VIAL IV ONE (07:24)
[2023-05-10] MEDS ORDERED: fentaNYL (PF) 50 MCG/ML 2 ML AMP ONE (07:24)
[2023-05-10] MEDS ORDERED: KETOROLAC 15 MG/ML 1 ML VIAL ONE (07:24)
[2023-05-10] MEDS ORDERED: HYDROmorphone (PF) 1 MG/ML ONE (07:24)
[2023-05-10] MEDS ORDERED: LIDOCAINE 2% INJ 20 MG/ML (2 ML VIAL) ONE (07:24)
[2023-05-10] MEDS ORDERED: GLYCOPYRROLATE 0.2 MG/ML 2 ML VIAL ONE (07:24)
[2023-05-10] MEDS ORDERED: BUPIVACAINE (PF) 0.25% 30 ML VIAL SQ ONE ×2 (07:52→08:04)
--- NOTE | 2023-05-10 08:07 | P.OP ---
Date of Procedure: 05/10/23 Preoperative Diagnosis: 1. family planning Postoperative Diagnosis: 1. family planning Procedure(s) Performed: Laparoscopic Tubal ligation Anesthesia: ILEANA Surgeon: Jonna Garcia Estimated Blood Loss (ml): 3 IV fluids (ml): 600 Urine output (ml): 75 Pathology: none sent Condition: stable Disposition: PACU Operative Findings: Normal uterus, tubes, ovaries. Description of Procedure: Patient was taken to the operating room where general anesthesia was obtained without difficulty. She was prepped and draped in normal sterile fashion in the dorsal lithotomy position, legs placed in the Haider stirrups. Bladder drained of all urine. [place] speculum placed in the vagina and the anterior lip the cervix was grasped with single-tooth tenaculum. The uterus is sounded to 7 cm and the kroner manipulator was placed. Attention was then turned to the abdomen and gloves were changed. A 10 mm infraumbilical incision was made the scalpel and 10 mm optical trocar was placed under direct visualization. A 5 mm suprapubic Incision was made and a 5 mm optical trocar was placed under direct visualization. Survey of the pelvis revealed normal uterus tubes and ovaries. The left fallopian tube was grasped with a Kleppinger and fulgurated 2-3 cm on this side in the ampullar portion. The right fallopian tube was grasped with a Kleppinger and fulgurated 2-3 cm in the ampullar portion. All instruments were then removed from the abdomen and vagina. The 10 mm infraumbilical incision was closed with 0 Vicryl and the fascial layer and then 4-0 Vicryl in a subcuticular fashion. The 5 mm incision was closed with 4-0 Vicryl in a subcuticular fashion. Patient tolerated procedure well, sponge and instrument counts correct 2 and she was taken to recovery room in stable condition.
[2023-05-10 09:42] VITALS: RESP 15
[2023-05-10 10:19] VITALS: BP 105/70; PULSE 70
== END 2023-05-10 10:31 | disposition home or self-care (01) ==
LOC: OR 06:20
PROVIDERS: ATTEND Obstetrics & Gynecology
DX: Z30.2 Encounter for sterilization (principal); K91.0 Vomiting following gastrointestinal surgery; Z85.71 Personal history of Hodgkin lymphoma; Z90.49 Acquired absence of other specified parts of digestive tract; Z87.891 Personal history of nicotine dependence; Z88.5 Allergy status to narcotic agent
CPT/HCPCS: 81025; 58670; J2250; J0330; J1200; J1100; J2710; J2405; J3010; J1170 ×2; J1885; J2704; J2001